=== PATIENT | female | born 1935 | race Caucasian/White ===

== ENCOUNTER 2021-02-07 05:11 | Observation (INO) | payer MEDICARE, OTHER ==
[~2021-02-07] VITALS: Ht 152.4 cm; Wt 61.3 kg
[~2021-02-07 05:11] MED LIST: ACET325T26 PO; LISI5TAB7 PO
[2021-02-07] MEDS ORDERED: SODIUM CHLORIDE FLUSH 10ML SYR IVF ONE (05:30)
--- NOTE | 2021-02-07 05:30 | NUR ---
Edgar Patiño provided to patient at the request of daughter at bedside.
[2021-02-07] MEDS ORDERED: SODIUM CHLORIDE FLUSH 10ML SYR IVF PRN (06:30)
--- NOTE | 2021-02-07 07:01 | NUR ---
REPORT GIVEN TO PAULINO BORRERO
--- NOTE | 2021-02-07 07:11 | NUR ---
ASSUMING CARE OF PATIENT AFTER BEDSIDE REPORT FROM MIKE LEOS. PT RESTING IN BED WITH FAMILY AT BEDSIDE. VSS. DIAZ.
[2021-02-07] MEDS ORDERED: ONDANSETRON 2MG/ML, 2ML IVPush PRN (07:30)
[2021-02-07] MEDS ORDERED: MELATONIN 5 MG TABLET PO PRN (07:30)
[2021-02-07] MEDS ORDERED: ASPIRIN 325 MG TABLET PO SCH (07:30)
[2021-02-07] MEDS ORDERED: ONDANSETRON ODT 4 MG PO PRN (07:30)
[2021-02-07] MEDS ORDERED: morphine SULFATE 10 MG/ML, 1ML IVPush PRN (07:30)
[2021-02-07] MEDS ORDERED: ACETAMINOPHEN 325 MG TABLET PO PRN (07:30)
[2021-02-07] MEDS ORDERED: ENALAPRILAT 1.25 MG/ML, 2ML IVPush PRN (07:30)
[2021-02-07] MEDS ORDERED: ASPIRIN 325 MG TABLET ONE (08:10)
[2021-02-07] MEDS ORDERED: METOPROLOL TARTRATE 25 MG TAB ONE (08:10)
--- NOTE | 2021-02-07 08:23 | NUR ---
US IN ROOM. PT PROVIDED WITH BREAKFAST TRAY. FAMILY AT BEDSIDE.
[2021-02-07] MEDS: METOPROLOL TARTRATE 25 MG TAB PO SCH ×2 (08:46→18:13)
[2021-02-07] MEDS ORDERED: CLOPIDOGREL 75 MG TABLET ONE (08:48)
[2021-02-07] MEDS ORDERED: LISINOPRIL 5 MG TABLET ONE (08:48)
[2021-02-07] MEDS: LISINOPRIL 5 MG TABLET PO SCH (08:50)
[2021-02-07] MEDS: CLOPIDOGREL 75 MG TABLET PO SCH (08:51)
[2021-02-07 09:36] LABS: TROPONIN I 0.988 ng/mL (0.000-0.045)
--- NOTE | 2021-02-07 09:58 | NUR ---
report to gaviota steen. pt ready for transfer
[2021-02-07 11:02] VITALS: BP 173/73
[2021-02-07] MEDS ORDERED: ENALAPRILAT 1.25 MG/ML, 1ML ONE ×2 (12:05→17:55)
[2021-02-07 14:00] VITALS: BP 174/72
[2021-02-07] MEDS ORDERED: NITROGLYCERIN 0.4 MG/SPRAY SL PRN (18:00)
[2021-02-07] MEDS ORDERED: NITROGLYCERIN 0.4 MG BOTTLE (25 TABS) SL PRN (18:00)
[2021-02-07 20:06] VITALS: BP 175/76
[2021-02-07] MEDS ORDERED: ATORVASTATIN 20 MG TABLET PO SCH (21:00)
[2021-02-08 01:25] VITALS: BP 173/77
[2021-02-08] MEDS ORDERED: ASPIRIN 81 MG TABLET EC PO SCH (06:00)
[2021-02-08] MEDS: METOPROLOL TARTRATE 25 MG TAB PO SCH (06:31)
[2021-02-08 08:15] VITALS: BP 167/75
[2021-02-08] MEDS: LISINOPRIL 5 MG TABLET PO SCH (09:16)
[2021-02-08] MEDS: CLOPIDOGREL 75 MG TABLET PO SCH (09:16)
[2021-02-08] MEDS ORDERED: LISI5TAB7 PO (11:38)
[2021-02-08] MEDS ORDERED: ASPI81TA45 PO (11:38)
[2021-02-08] MEDS ORDERED: IBUP200T49 PO (11:39)
== END 2021-02-08 13:04 | disposition home or self-care (01) ==
LOC: ED 06:13 → INTOOBSV 06:34 → EDIP 06:34 → 5SO 10:46
PROVIDERS: ADMIT Hospitalist; ATTEND Emergency Medicine
DX: I21.A1 Myocardial infarction type 2 (principal); I10 Essential (primary) hypertension; I49.5 Sick sinus syndrome; I31.9 Disease of pericardium, unspecified; F03.90 Unspecified dementia, unspecified severity, without behavioral disturbance, psychotic disturbance, mood disturbance, and anxiety; J90 Pleural effusion, not elsewhere classified; I31.3 Pericardial effusion (noninflammatory); I25.2 Old myocardial infarction; E78.5 Hyperlipidemia, unspecified; Z79.899 Other long term (current) drug therapy; Z95.0 Presence of cardiac pacemaker; Z79.82 Long term (current) use of aspirin
CPT/HCPCS: 36415; 71045; 84484; 93005; 93308; 93321; 93325; 96374; 99285; G0378

== ENCOUNTER → 2021-02-13 | Outpatient (CLI) | payer MEDICARE, OTHER ==
[~2021-02-13] MED LIST changes: +ASPI81TA45 PO; +IBUP200T49 PO
== END | disposition home or self-care (01) ==
LOC: RAD 15:02
PROVIDERS: ATTEND Internal Medicine Cardiovascular Disease
DX: J90 Pleural effusion, not elsewhere classified (principal); J98.11 Atelectasis; I51.7 Cardiomegaly; Z95.0 Presence of cardiac pacemaker
CPT/HCPCS: 71046